=== PATIENT | male | born 1955 | race Caucasian/White ===

== ENCOUNTER → 2020-04-22 11:17 | Outpatient (CLI) | payer OTHER, SELFPAY ==
--- NOTE | ~2020-04-22 | XR_ITS ---
XR chest 2V DATE: 04/22/2020 11:38 INDICATION: Chronic obstructive pulmonary disease TECHNIQUE: PA and lateral views COMPARISON: 08/09/2019 PA and lateral views FINDINGS: Normal heart size. No hilar or mediastinal enlargement. Bilateral hyperinflation. No pul monary infiltrate or consolidation, pulmonary vascular congestion or pleural effusion or pneumothorax . IMPRESSION: No active cardiopulmonary disease There is mild scoliosis and degenerative spurring Reviewed, dictated and finalized at location B.
== END ==
PROVIDERS: PCP Family Medicine; Visit Provider Family Medicine
DX: J44.9 Chronic obstructive pulmonary disease, unspecified (principal); M41.80 Other forms of scoliosis, site unspecified
CPT/HCPCS: 71046

== ENCOUNTER 2021-05-07 09:49 | Outpatient (CLI) | payer OTHER, SELFPAY ==
[2021-05-07 18:48] LABS: Basophils Absolute Auto 0.1 K/mm3 (0.0-0.1); Basophils Percent Auto 0.9 % (0.2-1.2); Eosinophils Absolute Auto 0.4 K/mm3 (0-0.3); Eosinophils Percent Auto 5.2 % (0-4.4); Hematocrit 46.1 % (42.0-52.0); Hemoglobin 14.9 g/dL (14.0-18.0); Immature Granulocyte Absolute 0.01 K/mm3 (0.00-0.031); Immature Granulocyte Percent A 0.1 % (0-0.5); Lymphocytes Absolute Auto 1.99 K/mm3 (0.9-3.2); Lymphocytes Percent Auto 28.9 % (18.3-44.2); Mean Corpuscular HGB Conc 32.3 g/dl (32-36); Mean Corpuscular Hemoglobin 29.7 pg (26-34); Mean Platelet Volume 8.5 fl (7.4-10.4); Monocytes Absolute Auto 0.7 K/mm3 (0.1-0.6); Monocytes Percent Auto 10.3 % (2.6-8.5); Neutrophils Absolute Auto 3.8 K/mm3 (1.3-6.7); Neutrophils Percent Auto 54.6 % (45.5-73.1); Platelet Count Result 303 k/mm3 (150-375); Red Blood Count 5.01 M/mm3 (4.6-6.20); Red Cell Distribution Width 13.8 % (11.5-14.5); White Blood Count 6.9 K/mm3 (4.5-10.0)
[2021-05-07 19:14] LABS: Vitamin D 25 Hydroxy 44.2 ng/mL
[2021-05-07 20:07] LABS: Alanine Aminotransferase 28 U/L (4-50); Albumin Level 4.2 g/dL (3.5-5.1); Alkaline Phosphatase 85 U/L (38-126); Anion Gap 7 mmol/L (8-16); Aspartate Amino Transferase 29 U/L (17-59); Bilirubin,Total 0.7 mg/dL (0.2-1.3); Blood Urea Nitrogen 15 mg/dL (9-20); Calcium 9.2 mg/dL (8.4-10.2); Carbon Dioxide 24 mmol/L (22-30); Chloride 99 mmol/L (98-107); Cholesterol 186 mg/dL (0-200); Estimated Glomerular Filt Rate > 60; Glucose 104 mg/dL (65-110); HDL Direct 44 mg/dL; Potassium 4.6 mmol/L (3.4-5.0); Sodium 130 mmol/L (137-145); Triglycerides 111 mg/dL (<150)
[2021-05-07 20:12] LABS: Hemoglobin A1C 5.2 % (<5.7)
[2021-05-07 20:18] LABS: LDL Cholesterol Direct 103 mg/dL
== END 2021-05-07 09:50 | disposition home or self-care (01) ==
PROVIDERS: PCP Family Medicine; Visit Provider Family Medicine
DX: E11.9 Type 2 diabetes mellitus without complications (principal); E78.5 Hyperlipidemia, unspecified; I10 Essential (primary) hypertension; Z91.89 Other specified personal risk factors, not elsewhere classified; R73.9 Hyperglycemia, unspecified; R79.89 Other specified abnormal findings of blood chemistry; Z12.5 Encounter for screening for malignant neoplasm of prostate; E55.9 Vitamin D deficiency, unspecified
CPT/HCPCS: 36415; 80053; 80061; 82306; 83036; 85025

== ENCOUNTER 2021-06-09 07:36 | Outpatient (CLI) | payer OTHER, SELFPAY ==
--- NOTE | ~2021-06-09 | US_ITS ---
EXAMINATION: US aorta [facility] scrn DATE: 06/09/2021 09:20 CDT INDICATION: Nicotine dependence. High cholesterol. Smoking history. Hypertension. TECHNIQUE: Grayscale, color Doppler, and pulsed Doppler images of the aorta and common iliac arteries were obtained. COMPARISON: None. FINDINGS: There is mild atherosclerosis. The proximal aorta measures 2.1 cm greatest sagittal dimension. The mi d aorta measures 1.5 cm greatest sagittal dimension. The distal aorta measures 1.3 cm greatest sagitt al dimension. The right common internal iliac artery measures 1.1 cm. The left common iliac artery me asures 1 cm. IMPRESSION: 1. Mild atherosclerosis without evidence for aneurysm. Reviewed, dictated and finalized at location A.
== END 2021-06-09 07:37 | disposition home or self-care (01) ==
LOC: ANHIMG 07:41
PROVIDERS: PCP Family Medicine; Visit Provider Family Medicine
DX: Z13.6 Encounter for screening for cardiovascular disorders (principal); Z87.891 Personal history of nicotine dependence; I70.0 Atherosclerosis of aorta
CPT/HCPCS: 76706

== ENCOUNTER 2021-06-22 11:36 | Outpatient (CLI) | payer OTHER, SELFPAY ==
[2021-06-22 20:27] LABS: Anion Gap 6 mmol/L (8-16); Blood Urea Nitrogen 12 mg/dL (9-20); Calcium 9.4 mg/dL (8.4-10.2); Carbon Dioxide 28 mmol/L (22-30); Chloride 101 mmol/L (98-107); Estimated Glomerular Filt Rate > 60; Glucose 104 mg/dL (65-110); Potassium 4.4 mmol/L (3.4-5.0); Sodium 135 mmol/L (137-145)
== END 2021-06-22 11:37 | disposition home or self-care (01) ==
PROVIDERS: PCP Family Medicine; Visit Provider Family Medicine
DX: E87.1 Hypo-osmolality and hyponatremia (principal)
CPT/HCPCS: 36415; 80048

== ENCOUNTER 2021-10-13 10:36 | Outpatient (CLI) | payer OTHER, SELFPAY ==
[2021-10-13 20:29] LABS: Anion Gap 11 mmol/L (8-16); Blood Urea Nitrogen 19 mg/dL (9-20); Calcium 8.9 mg/dL (8.4-10.2); Carbon Dioxide 24 mmol/L (22-30); Chloride 98 mmol/L (98-107); Estimated Glomerular Filt Rate > 60; Glucose 113 mg/dL (65-110); Potassium 4.5 mmol/L (3.4-5.0); Sodium 133 mmol/L (137-145)
== END 2021-10-13 10:37 | disposition home or self-care (01) ==
PROVIDERS: PCP Family Medicine; Visit Provider Family Medicine
DX: E87.1 Hypo-osmolality and hyponatremia (principal)
CPT/HCPCS: 36415; 80048

== ENCOUNTER 2022-04-13 09:55 | Outpatient (CLI) | payer OTHER, SELFPAY ==
[2022-04-13 18:35] LABS: Hematocrit 43.2 % (42.0-52.0); Mean Corpuscular HGB Conc 32.4 g/dl (32-36); Mean Corpuscular Hemoglobin 28.1 pg (26-34); Mean Corpuscular Volume 86.6 fl (80-100); Mean Platelet Volume 8.6 fl (7.4-10.4); Platelet Count Result 310 k/mm3 (150-375); Red Blood Count 4.99 M/mm3 (4.6-6.20); Red Cell Distribution Width 14.8 % (11.5-14.5); White Blood Count 8.1 K/mm3 (4.5-10.0)
[2022-04-13 19:36] LABS: Vitamin D 25 Hydroxy 49.9 ng/mL
[2022-04-13 20:07] LABS: Anion Gap 11 mmol/L (8-16); Blood Urea Nitrogen 17 mg/dL (9-20); Calcium 9.1 mg/dL (8.4-10.2); Carbon Dioxide 25 mmol/L (22-30); Chloride 98 mmol/L (98-107); Cholesterol 182 mg/dL (0-200); Estimated Glomerular Filt Rate > 60; Glucose 108 mg/dL (65-110); HDL Direct 39 mg/dL; Potassium 4.3 mmol/L (3.4-5.0); Sodium 134 mmol/L (137-145); Triglycerides 93 mg/dL (<150)
[2022-04-13 20:18] LABS: LDL Cholesterol Direct 98 mg/dL
[2022-04-13 20:27] LABS: Hemoglobin A1C 5.1 % (<5.7)
[2022-04-13 20:50] LABS: Prostate Specific Antigen 1.1 ng/mL (< OR = 4.0)
== END 2022-04-13 09:56 | disposition home or self-care (01) ==
PROVIDERS: PCP Family Medicine; Visit Provider Family Medicine
DX: Z12.5 Encounter for screening for malignant neoplasm of prostate (principal); E55.9 Vitamin D deficiency, unspecified; R73.9 Hyperglycemia, unspecified; E87.1 Hypo-osmolality and hyponatremia; R79.89 Other specified abnormal findings of blood chemistry; E66.9 Obesity, unspecified; E16.1 Other hypoglycemia; E78.5 Hyperlipidemia, unspecified
CPT/HCPCS: 36415; 80048; 80061; 82306; 83036; 84153; 85027; G0103

== ENCOUNTER 2022-10-25 09:22 | Outpatient (CLI) | payer OTHER, SELFPAY ==
[2022-10-25 20:17] LABS: Alanine Aminotransferase 25 U/L (6-50); Alkaline Phosphatase 68 U/L (38-126); Anion Gap 5 mmol/L (8-16); Aspartate Amino Transferase 39 U/L (17-59); Bilirubin,Total 0.5 mg/dL (0.2-1.3); Blood Urea Nitrogen 12 mg/dL (9-20); Calcium 8.7 mg/dL (8.4-10.2); Carbon Dioxide 28 mmol/L (22-30); Chloride 100 mmol/L (98-107); Estimated Glomerular Filt Rate > 60; Glucose 101 mg/dL (65-110); Sodium 133 mmol/L (137-145)
[2022-10-25 21:21] LABS: Hematocrit 42.5 % (42.0-52.0); Hemoglobin 13.5 g/dL (14.0-18.0); Mean Corpuscular HGB Conc 31.8 g/dl (32-36); Mean Corpuscular Volume 88.2 fl (80-100); Mean Platelet Volume 8.7 fl (7.4-10.4); Platelet Count Result 312 k/mm3 (150-375); Red Blood Count 4.82 M/mm3 (4.6-6.20); Red Cell Distribution Width 15.7 % (11.5-14.5)
== END 2022-10-25 09:23 | disposition home or self-care (01) ==
PROVIDERS: PCP Family Medicine; Visit Provider Family Medicine
DX: E87.1 Hypo-osmolality and hyponatremia (principal); E73.9 Lactose intolerance, unspecified
CPT/HCPCS: 36415; 80053; 85027

== ENCOUNTER 2023-10-13 11:22 | Outpatient (CLI) | payer OTHER, SELFPAY ==
--- NOTE | ~2023-10-13 | XR_ITS ---
Clinical Indication: Chest congestion PA and lateral views of the chest: Comparison: 04/22/2020 Findings: There is minimal haziness left lung base, likely minimal atelectatic change. Right lung louise ar. Cardiomediastinal silhouette is within normal limits. Bones and soft tissues are unremarkable. Impression: Minimal haziness left lung base, likely mild atelectatic change. Reviewed, dictated and finalized at location . 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
== END 2023-10-13 11:23 | disposition home or self-care (01) ==
LOC: ANHBWCIMG 11:23
PROVIDERS: PCP Nurse Practitioner Adult Health; Visit Provider Nurse Practitioner Adult Health
DX: J06.9 Acute upper respiratory infection, unspecified (principal); R91.8 Other nonspecific abnormal finding of lung field
CPT/HCPCS: 71046

== ENCOUNTER 2023-10-31 09:59 | Outpatient (CLI) | payer OTHER, SELFPAY ==
[2023-10-31 19:02] LABS: Basophils Absolute Auto 0.1 K/mm3 (0.0-0.1); Basophils Percent Auto 0.8 % (0.2-1.2); Eosinophils Absolute Auto 0.2 K/mm3 (0-0.3); Eosinophils Percent Auto 3.7 % (0-4.4); Hematocrit 42.6 % (42.0-52.0); Hemoglobin 12.4 g/dL (14.0-18.0); Immature Granulocyte Absolute 0.01 K/mm3 (0.00-0.031); Immature Granulocyte Percent A 0.2 % (0-0.5); Lymphocytes Percent Auto 20.1 % (18.3-44.2); Mean Corpuscular HGB Conc 29.1 g/dl (32-36); Mean Corpuscular Hemoglobin 25.8 pg (26-34); Mean Corpuscular Volume 88.6 fl (80-100); Mean Platelet Volume 8.8 fl (7.4-10.4); Monocytes Absolute Auto 0.5 K/mm3 (0.1-0.6); Monocytes Percent Auto 7.3 % (2.6-8.5); Neutrophils Absolute Auto 4.4 K/mm3 (1.3-6.7); Neutrophils Percent Auto 67.9 % (45.5-73.1); Platelet Count Result 285 k/mm3 (150-375); Red Blood Count 4.81 M/mm3 (4.6-6.20); Red Cell Distribution Width 16.6 % (11.5-14.5); White Blood Count 6.5 K/mm3 (4.5-10.0)
[2023-10-31 19:38] LABS: Hypochromasia 1+ (NORMAL); Platelet Estimate Adequate (Adequate); Schistocytes None Seen (NORMAL)
[2023-10-31 19:39] LABS: Anisocytosis 2+ (NORMAL)
[2023-10-31 19:41] LABS: Vitamin D 25 Hydroxy 59.4 ng/mL
[2023-10-31 21:04] LABS: Alanine Aminotransferase 24 U/L (6-50); Albumin Level 3.9 g/dL (3.5-5.1); Alkaline Phosphatase 76 U/L (38-126); Anion Gap 5 mmol/L (8-16); Aspartate Amino Transferase 31 U/L (17-59); Bilirubin,Total 0.6 mg/dL (0.2-1.3); Blood Urea Nitrogen 13 mg/dL (9-20); Calcium 9.3 mg/dL (8.4-10.2); Carbon Dioxide 29 mmol/L (22-30); Chloride 101 mmol/L (98-107); Cholesterol 176 mg/dL (0-200); Estimated Glomerular Filt Rate > 60; Glucose 139 mg/dL (65-110); HDL Direct 33 mg/dL; Potassium 4.1 mmol/L (3.4-5.0); Sodium 135 mmol/L (137-145); Triglycerides 126 mg/dL (<150)
[2023-10-31 21:14] LABS: LDL Cholesterol Direct 107 mg/dL
[2023-10-31 22:05] LABS: Hemoglobin A1C 5.6 % (<5.7)
== END 2023-10-31 10:00 | disposition home or self-care (01) ==
PROVIDERS: PCP Nurse Practitioner Adult Health; Visit Provider Nurse Practitioner Adult Health
DX: R79.89 Other specified abnormal findings of blood chemistry (principal); I10 Essential (primary) hypertension; Z79.899 Other long term (current) drug therapy
CPT/HCPCS: 36415; 80053; 80061; 82306; 83036; 85025

== ENCOUNTER → 2023-10-31 11:34 | Outpatient (REF) | payer OTHER, SELFPAY | LOC: ANHLAB 11:34 | PROVIDERS: PCP Nurse Practitioner Adult Health; Visit Provider Plastic Surgery | DX: C44.629 Squamous cell carcinoma of skin of left upper limb, including shoulder (principal) | CPT/HCPCS: 36415; 80053; 80061; 82306; 83036; 85025; 88305 ==

== ENCOUNTER 2024-02-15 11:19 | Outpatient (CLI) | payer OTHER, SELFPAY ==
--- NOTE | ~2024-02-15 | XR_ITS ---
Left Knee Technique: AP, lateral, and sunrise views were obtained. Clinical History: Pain Findings: No fracture or dislocation is seen. There is mild medial compartment narrowing. Minimal deg enerative spurring noted.. Soft tissues are unremarkable. No joint effusion is seen. Impression: Mild degenerative change overall, as detailed above. Reviewed, dictated and finalized at location M. Impression: Mild degenerative change overall, as detailed above.
[2024-02-15 19:24] LABS: Basophils Absolute Auto 0.1 K/mm3 (0.0-0.1); Basophils Percent Auto 0.8 % (0.2-1.2); Eosinophils Absolute Auto 0.3 K/mm3 (0-0.3); Eosinophils Percent Auto 3.7 % (0-4.4); Hematocrit 43.9 % (42.0-52.0); Hemoglobin 13.4 g/dL (14.0-18.0); Immature Granulocyte Absolute 0.02 K/mm3 (0.00-0.031); Immature Granulocyte Percent A 0.3 % (0-0.5); Lymphocytes Absolute Auto 1.37 K/mm3 (0.9-3.2); Lymphocytes Percent Auto 18.9 % (18.3-44.2); Mean Corpuscular HGB Conc 30.5 g/dl (32-36); Mean Corpuscular Volume 85.1 fl (80-100); Mean Platelet Volume 8.5 fl (7.4-10.4); Monocytes Absolute Auto 0.8 K/mm3 (0.1-0.6); Monocytes Percent Auto 10.9 % (2.6-8.5); Neutrophils Absolute Auto 4.7 K/mm3 (1.3-6.7); Neutrophils Percent Auto 65.4 % (45.5-73.1); Platelet Count Result 416 k/mm3 (150-375); Red Blood Count 5.16 M/mm3 (4.6-6.20); Red Cell Distribution Width 15.7 % (11.5-14.5); White Blood Count 7.2 K/mm3 (4.5-10.0)
[2024-02-15 20:12] LABS: Vitamin D 25 Hydroxy 51.2 ng/mL
[2024-02-15 20:49] LABS: Alanine Aminotransferase 25 U/L (6-50); Albumin Level 4.3 g/dL (3.5-5.1); Alkaline Phosphatase 88 U/L (38-126); Anion Gap 8 mmol/L (4-12); Aspartate Amino Transferase 40 U/L (17-59); Bilirubin,Total 0.4 mg/dL (0.2-1.3); Blood Urea Nitrogen 15 mg/dL (9-20); Calcium 9.4 mg/dL (8.4-10.2); Carbon Dioxide 25 mmol/L (22-30); Chloride 102 mmol/L (98-107); Cholesterol 169 mg/dL (0-200); Estimated Glomerular Filt Rate > 60; Glucose 99 mg/dL (65-110); HDL Direct 36 mg/dL; Potassium 4.3 mmol/L (3.4-5.0); Sodium 135 mmol/L (137-145); Triglycerides 144 mg/dL (<150)
[2024-02-15 21:04] LABS: LDL Cholesterol Direct 103 mg/dL
[2024-02-15 21:32] LABS: Hemoglobin A1C 5.4 % (<5.7)
== END 2024-02-15 11:20 | disposition home or self-care (01) ==
PROVIDERS: PCP Nurse Practitioner Adult Health; Visit Provider Nurse Practitioner Adult Health
DX: M17.12 Unilateral primary osteoarthritis, left knee (principal); E78.5 Hyperlipidemia, unspecified; R79.89 Other specified abnormal findings of blood chemistry; Z79.899 Other long term (current) drug therapy
CPT/HCPCS: 36415; 73562; 80053; 80061; 82306; 83036; 85025

== ENCOUNTER 2024-04-11 13:40 | Outpatient (CLI) | payer OTHER, SELFPAY ==
--- NOTE | ~2024-04-11 | XR_ITS ---
XR chest 2V 04/11/2024 13:47 Indication: For 2 weeks. COPD. Procedure: 2 view chest Comparison: Comparison to multiple prior studies sequentially, with oldest reviewed study dated 06/19. Findings: There is left basilar atelectasis/scarring. Heart size normal. No pleural effusion, edema o r pneumothorax. Impression: 1: Left basilar atelectasis/scarring. Reviewed, dictated and finalized at location B. Impression: 1: Left basilar atelectasis/scarring.
== END 2024-04-11 13:41 | disposition home or self-care (01) ==
LOC: ANHBWCIMG 13:41
PROVIDERS: PCP Nurse Practitioner Adult Health; Visit Provider Nurse Practitioner Adult Health
DX: J44.9 Chronic obstructive pulmonary disease, unspecified (principal); R91.8 Other nonspecific abnormal finding of lung field
CPT/HCPCS: 71046

== ENCOUNTER 2024-04-25 10:21 | Outpatient (CLI) | payer OTHER, SELFPAY ==
--- NOTE | ~2024-04-25 | CT_ITS ---
CT Scan of the Chest without Contrast: Clinical Indication: COPD Technique: Contiguous sections were acquired throughout the chest without intravenous contrast. Dose reduction technique was used on this scan by utilizing automated exposure control and iterative recon struction technique. The dose-length product (DLP) was 400.65 mGy-cm. Findings: There is no evidence of any significant mediastinal, hilar or axillary lymphadenopathy. Calcified med iastinal nodes are present. There is no evidence of pleural or pericardial effusion. There are tree-in-bud opacities worst in the left lower lobe, but also in the left upper lobe/lingula and right lower lobe. Calcified right upper lobe granuloma noted. Images through the upper abdomen reveal no abnormalities. There is degenerative spondylosis of the th oracic spine. Impression: Tree-in-bud opacities, as above, worst in the left lower lobe, consistent with small airways infectio us process. Reviewed, dictated and finalized at [facility]. Impression: Tree-in-bud opacities, as above, worst in the left lower lobe, consistent with small airways infectious process.
== END 2024-04-25 10:22 ==
PROVIDERS: Visit Provider Nurse Practitioner Adult Health
DX: J98.11 Atelectasis (principal); J44.9 Chronic obstructive pulmonary disease, unspecified; R91.8 Other nonspecific abnormal finding of lung field
CPT/HCPCS: 71250

== ENCOUNTER 2024-05-02 00:37 | Day surgery (SDC) | payer OTHER, SELFPAY ==
[2024-04-27 13:33] VITALS: BMI 37.8
--- NOTE | 2024-04-27 13:48 | PC.NURSE ---
Addendum entered by Dash Carrera RN 04/30/24 12:44: Spoke with Jennifer and said no food midnight but clear liquids till only 4am. Nothing to drink after 4am. Original Note: Report to the Outpatient Waiting Room, entrance under the green pavilion located off [facility], at time __10:00AM on date __05/02/24 . Planned Procedure Time: __12:00PM . Time changes happen often and if your time is changed the preop area will call you the afternoon before. - You and your visitor will be asked to self-screen and do not enter if you have any COVID symptoms. - A mask is optional within the hospital at this time. Patients may have clear liquids (water, carbonated beverages, clear teas, apple juice) until 3 hours prior to surgery with a maximum of 20 ounces. - No food from midnight until time of surgery. Take the following medications with a SIP of water the morning of surgery: ____WIXELA INHALER, SPIRIVA INHALER, DOXYCYCLINE & PAROXETINE. MAY USE ALBUTEROL INHALER NEEDED. DO NOT STOP ANY OF YOUR OTHER PRESCRIPTION MEDICATIONS PRIOR TO SURGERY ?EXCEPT THE FOLLOWING Medications to discontinue per physician HOLD ALL VITAMINS/SUPPLEMENTS 3 DAYS PRE-OP PER ANESTHESIA Date to take last dose 04/28/24 Please no make-up, nail maldivian, hairspray, perfume, deodorant, or body powder the day of surgery. No jewelry (including any body piercings) or valuables the day of surgery, leave them at home. Please take a shower or bath the night before, or the morning of, surgery with an antibacterial soap. Wear comfortable, loose fitting clothing. - Jewelry must be removed prior to entering the operating room. Rings and piercings that are not removed may be cut off. - The hospital will not accept responsibility for valuables. - Please leave all valuables, including medications, at home the day of surgery. If you are going home after surgery, a licensed driver's license examiner must drive you home. - NO public transportation without another adult if you receive anesthesia. - We recommend that an adult stay with you for 24 hours following discharge. - We also recommend that you do not drive, make important decision, drink alcoholic beverages, or take any drugs that were not prescribed by your health care provider for at least 24 hours after your discharge time. Follow any additional instructions given to you from your surgeon. If you or anyone in your household have experienced Covid symptoms in the past week, please notify your surgeon or the nurse liaison at the phone number below for possible testing. Telephone instructions given to ___PATIENT'S - JENNIFER and asked if any additional questions and then verbalized understanding. Patient advised to call surgeon office or pre surgery nurse liaison [phone] if any additional questions.
--- NOTE | 2024-05-02 06:54 | PM.HPGS ---
History of Present Illness History of Present Illness Chief complaint: Dupuytren's right ring finger Narrative: Patient seen and examined in pre-operative holding area. No interval change in medical history or symptoms. Patient recalls previous discussion of benefits and alternatives to procedure. Continues to desire to proceed with right ring finger fasciectomy. Reviewed procedure, post-op expectations and risks including but not limited to bleeding, infection, injury to tendon/nerve/vessel, incomplete release, recurrence, decreased hand function, stiffness, RSD, no change or worsening of symptoms. I discussed the possible use of assistants and their participation in the case. Patient stated understanding and signed the consent form wishing to proceed. Review of Systems Review of Systems: All systems reviewed & are unremarkable except as noted in HPI and below PMFSH Past Medical History Medical History Anxiety COPD (chronic obstructive pulmonary disease) Depression Hypercholesteremia Hypertension Postherpetic neuralgia (~07/2019) Tachycardia, paroxysmal (~07/2019) Family History Family History Father Acute myocardial infarction Mother Family history of malignant melanoma Social History Social History Smoking packs per day: 1 Smoking cigarettes per day: 20.0 Years smoked: 25 Smoking pack-years: 25.00 Smoking status: Former smoker Tobacco type: cigarettes Smoking end date: 03/19/95 Alcohol intake: current Lack of Transportation: No Lack of Food: Never True Current Housing: I Do Not Have Housing Concerned About Future Housing: No Difficulty Paying Gas/Electric Bills: No Difficulty Paying for Meds: No Currently Unemployed: No Education: High School Diploma/GED Difficulty w/ Childcare or Family Care: No Living arrangements: with family Additional living arrangements comments: Gender identity (if verbalized by the patient): Male Spiritual care concerns: No Meds Home Medications and Allergies Home Medications Medication Instructions Recorded Confirmed Type albuterol sulfate 90 mcg/actuation 1 inh inhalation Q4H PRN Shortness 04/10/21 04/27/24 History aerosol inhaler (ProAir HFA) Of Breath Or Wheezing tiotropium bromide 1.25 2 puff inhalation DAILY #4 grams 04/10/21 05/02/24 Rx mcg/actuation mist for inhalation (Spiriva Respimat) montelukast 10 mg tablet See Rx Instructions .Route 09/20/23 05/02/24 Rx .COMPLEX #90 tabs losartan 50 mg tablet See Rx Instructions .Route 01/12/24 05/02/24 Rx .COMPLEX #90 tabs paroxetine HCl 40 mg tablet See Rx Instructions .Route 04/18/24 05/02/24 Rx .COMPLEX #90 tabs loratadine 10 mg tablet See Rx Instructions .Route 04/19/24 05/02/24 Rx .COMPLEX #90 tabs atorvastatin 10 mg tablet See Rx Instructions .Route 04/23/24 05/02/24 Rx .COMPLEX #90 tabs doxycycline hyclate 100 mg tablet 100 mg PO BID 10 days #20 tabs 04/25/24 05/02/24 Rx cholecalciferol (vitamin D3) 50 50 mcg PO DAILY 04/27/24 05/02/24 History mcg (2,000 unit) tablet fluticasone 500 mcg-salmeterol 50 2 inh inhalation BID 04/27/24 05/02/24 History mcg/dose blistr powdr for inhalation (Wixela Inhub) fluticasone propionate 50 1 spray intranasal Q12H PRN Nasal 04/27/24 05/02/24 History mcg/actuation nasal Congestion spray,suspension (Flonase Allergy Relief) tramadol 50 mg tablet 50 mg PO Q6H PRN pain #12 tabs 05/02/24 Rx Allergies Allergy/AdvReac Type Severity Reaction Status Date / Time No Known Allergies Allergy Verified 05/02/24 10:07 Exam Narrative: unchanged Assessment and Plan Assessment and plan (1) Dupuytren contracture: Code(s): 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
--- NOTE | 2024-05-02 06:55 | W.PM.PROC2 ---
Procedure Note - Detailed Date of Procedure 05/02/24 Pre-op Diagnosis Dupuytren's right ring finger Post-op Diagnosis Same Procedure Performed right ring finger fasciectomy Surgeon Megan Stauffer MD Gang Supervisor [employer] susan ariza pa-c Anesthesia MAC Description of Procedure INFORMED CONSENT: The patient was seen and examined and marked in the pre-op area.? The patient signed the consent form. PROCEDURE IN DETAIL:The patient taken back to OR on the stretcher in supine position. Time out performed with anesthesia, surgeon and staff agreeing on patient's name site and surgery to be performed SCDs were placed on the lower extremities and inflated. A tourniquet was placed on {right} upper extremity and antibiotics given IV After anesthesia administered sedation I injected {6}cc 1%lido and 0.5% marcaine plain for digital block in the palm The?{right upper extremity}?was prepped and draped in sterile fashion the??{right upper extremity} was? exsanguinated with Esmarch bandage and tourniquet inflated to 250mmHg I proceeded with making a longitudinal incision over the large central cord of the right ring finger in the palm going distally to the proximal interphalangeal joint. I made my incision obliquely across flexion creases. This was done through skin and dermis. Scalpel and Littler scissors were used to elevate skin flaps above the cord proximally. I proceeded with circumferential dissection around the origin of the cord proximally. I proceeded with transection of the cord with the 15 blade scalpel. I then proceeded with anterograde dissection of the cord to the PIP joint until I was able to achieve full extension of the MP joint and PIP joint. The neurovascular bundles were protected throughout the procedure. I irrigated with normal saline. I closed skin with 4-0 chromic. A dressing of xeroform, 4x4, roderick, and an ulnar gutter splint was applied for patient safety, security, and comfort and secured with an ananya bandage after the tourniquet was let down noting the hand was warm and well perfused. The patient was then awaken from anesthesia and transferred to the recovery room in stable condition.? Complications - none EBL- 0cc Disposition - home in stable conditions susan ariza pa-c was essential for positioning, retraction, closure and dressing placement [facility] Billing Surgery - Charge Forward: Surgery Billing ([id number] for susan)
[2024-05-02 10:08] VITALS: BP 146/73; PULSE 100; RESP 20; TEMP 36.1; O2SAT 99
[2024-05-02] MEDS: LACTATED RINGERS 1,000 ML 30 ML IV CONT (10:25)
--- NOTE | 2024-05-02 10:32 | WPDANESEPPF ---
Anes - Initial Pre Proc Eval Procedure: Operation Date: 05/02/24 12:00 Proposed Procedures p Right Ring Finger Fasciectomy - Megan Stauffer MD Date/Time: 05/02/24 10:32 Surgeon: Megan Stauffer MD Pre Op Diagnosis: Dupuytren's right ring finger Patient Data Age: 69 Gender: M Height: 1.85 m Weight: 130 kg Allergies Allergy/AdvReac Type Severity Reaction Status Date / Time No Known Allergies Allergy Verified 05/02/24 10:07 Home Medications Medication Instructions Recorded Confirmed Type albuterol sulfate 90 mcg/actuation 1 inh inhalation Q4H PRN Shortness 04/10/21 04/27/24 History aerosol inhaler (ProAir HFA) Of Breath Or Wheezing tiotropium bromide 1.25 2 puff inhalation DAILY #4 grams 04/10/21 05/02/24 Rx mcg/actuation mist for inhalation (Spiriva Respimat) montelukast 10 mg tablet See Rx Instructions .Route 09/20/23 05/02/24 Rx .COMPLEX #90 tabs losartan 50 mg tablet See Rx Instructions .Route 01/12/24 05/02/24 Rx .COMPLEX #90 tabs paroxetine HCl 40 mg tablet See Rx Instructions .Route 04/18/24 05/02/24 Rx .COMPLEX #90 tabs loratadine 10 mg tablet See Rx Instructions .Route 04/19/24 05/02/24 Rx .COMPLEX #90 tabs atorvastatin 10 mg tablet See Rx Instructions .Route 04/23/24 05/02/24 Rx .COMPLEX #90 tabs doxycycline hyclate 100 mg tablet 100 mg PO BID 10 days #20 tabs 04/25/24 05/02/24 Rx cholecalciferol (vitamin D3) 50 50 mcg PO DAILY 04/27/24 05/02/24 History mcg (2,000 unit) tablet fluticasone 500 mcg-salmeterol 50 2 inh inhalation BID 04/27/24 05/02/24 History mcg/dose blistr powdr for inhalation (Wixela Inhub) fluticasone propionate 50 1 spray intranasal Q12H PRN Nasal 04/27/24 05/02/24 History mcg/actuation nasal Congestion spray,suspension (Flonase Allergy Relief) tramadol 50 mg tablet 50 mg PO Q6H PRN pain #12 tabs 05/02/24 Rx Patient hx anesthesia problems: none Family hx anesthesia problems: none Results Review: All pre-operative results and documents have been reviewed as part of the pre-operative evaluation. [facility] Past Medical History Medical History Anxiety COPD (chronic obstructive pulmonary disease) Depression Hypercholesteremia Hypertension Postherpetic neuralgia (~07/2019) Tachycardia, paroxysmal (~07/2019) Family History Family History Father Acute myocardial infarction Mother Family history of malignant melanoma Social History Social History Smoking packs per day: 1 Smoking cigarettes per day: 20.0 Years smoked: 25 Smoking pack-years: 25.00 Smoking status: Former smoker Tobacco type: cigarettes Smoking end date: 03/19/95 Alcohol intake: current Lack of Transportation: No Lack of Food: Never True Current Housing: I Do Not Have Housing Concerned About Future Housing: No Difficulty Paying Gas/Electric Bills: No Difficulty Paying for Meds: No Currently Unemployed: No Education: High School Diploma/GED Difficulty w/ Childcare or Family Care: No Living arrangements: with family Additional living arrangements comments: Gender identity (if verbalized by the patient): Male Spiritual care concerns: No Anes - Eval Final PreProcedure Day of Procedure 05/02/24 10:32 Patient weight: morbidly obese Heart: regular rate and rhythm Lungs: clear to auscultation and normal air movement Airway: Mallampati scale class II Neurological: alert and oriented Last oral intake: >/= 8 hours ASA classification: III Emergent: no Anesthetic plan: proceed Anesthesia type and monitoring: general GIVS (LMA if needed) and standard monitoring Results Review: All pre-operative results and documents have been reviewed as part of the pre-operative evaluation. Informed Consent: The patient's anesthetic
--- NOTE | 2024-05-02 10:58 | P.PNAN_ITS ---
Anes - Eval Final PreProcedure Day of Procedure 05/02/24 10:58 Patient weight: obese Heart: regular rate and rhythm Lungs: clear to auscultation Airway: Mallampati scale class II Neurological: alert and oriented Last oral intake: >/= 8 hours ASA classification: III Emergent: no Anesthetic plan: proceed Anesthesia type and monitoring: general GIVS and standard monitoring Results Review: All pre-operative results and documents have been reviewed as part of the pre- operative evaluation. Informed Consent: The patient's anesthetic plan and its attendant risks and benefits were discussed with the patient/family/POA. Questions were solicited and answers provided to the satisfaction of the patient/family/POA.
[2024-05-02] MEDS: ceFAZolin 3 GM/D5W 100 ML 100 ML IVPB (11:21)
[2024-05-02] MEDS: BUPivacaine HCL 0.5% 10 ML AMP 20 ML INFILTRATE (11:33)
[2024-05-02] MEDS: LIDOCAINE HCL 1% LOCAL INJ 20 ML VIAL 4 ML INFILTRATE (11:34)
[2024-05-02 11:55] VITALS: BP 121/73; PULSE 86; RESP 14; O2SAT 100
[2024-05-02 12:25] VITALS: BP 114/66; PULSE 78; RESP 15
[2024-05-02 13:00] VITALS: BP 112/65; PULSE 78; RESP 16
== END 2024-05-02 13:05 | disposition home or self-care (01) ==
PROVIDERS: Visit Provider Plastic Surgery
PROC: (CPT 26045; principal; 2024-05-02 12:00)
DX: M72.0 Palmar fascial fibromatosis [Dupuytren] (principal); J44.9 Chronic obstructive pulmonary disease, unspecified; I10 Essential (primary) hypertension; E78.00 Pure hypercholesterolemia, unspecified; F41.9 Anxiety disorder, unspecified; F32.A Depression, unspecified; Z87.891 Personal history of nicotine dependence; E66.01 Morbid (severe) obesity due to excess calories; Z68.36 Body mass index [BMI] 36.0-36.9, adult; Z79.51 Long term (current) use of inhaled steroids
CPT/HCPCS: 26123; 88304; A9270; J0690; J1100; J2250; J2371; J2405; J2704; J3010; J7120

== ENCOUNTER 2024-08-22 10:53 | Outpatient (CLI) | payer OTHER, SELFPAY ==
[2024-08-22 18:54] LABS: Basophils Absolute Auto 0.1 K/mm3 (0.0-0.1); Basophils Percent Auto 0.9 % (0.2-1.2); Eosinophils Absolute Auto 0.4 K/mm3 (0-0.3); Eosinophils Percent Auto 5.1 % (0-4.4); Hematocrit 41.9 % (42.0-52.0); Hemoglobin 12.5 g/dL (14.0-18.0); Immature Granulocyte Absolute 0.01 K/mm3 (0.00-0.031); Immature Granulocyte Percent A 0.1 % (0-0.5); Immature Platelet Fraction Pct 2.4 % (0.9-11.2); Lymphocytes Absolute Auto 1.43 K/mm3 (0.9-3.2); Lymphocytes Percent Auto 18.4 % (18.3-44.2); Mean Corpuscular HGB Conc 29.8 g/dl (32-36); Mean Corpuscular Hemoglobin 25.7 pg (26-34); Mean Platelet Volume 9.3 fl (7.4-10.4); Monocytes Absolute Auto 0.7 K/mm3 (0.1-0.6); Monocytes Percent Auto 9.3 % (2.6-8.5); Neutrophils Absolute Auto 5.2 K/mm3 (1.3-6.7); Neutrophils Percent Auto 66.2 % (45.5-73.1); Platelet Count Result 308 k/mm3 (150-375); Red Blood Count 4.87 M/mm3 (4.6-6.20); Red Cell Distribution Width 15.9 % (11.5-14.5); White Blood Count 7.8 K/mm3 (4.5-10.0)
[2024-08-22 21:36] LABS: Alanine Aminotransferase 26 U/L (6-50); Albumin Level 4.1 g/dL (3.5-5.1); Alkaline Phosphatase 87 U/L (38-126); Anion Gap 6 mmol/L (4-12); Aspartate Amino Transferase 39 U/L (17-59); Bilirubin,Total 0.5 mg/dL (0.2-1.3); Blood Urea Nitrogen 15 mg/dL (9-20); Calcium 8.9 mg/dL (8.4-10.2); Carbon Dioxide 27 mmol/L (22-30); Chloride 100 mmol/L (98-107); Cholesterol 172 mg/dL (0-200); Estimated Glomerular Filt Rate > 60; Glucose 128 mg/dL (65-110); HDL Direct 40 mg/dL; Potassium 4.3 mmol/L (3.4-5.0); Sodium 133 mmol/L (137-145); Triglycerides 137 mg/dL (<150)
[2024-08-22 21:47] LABS: LDL Cholesterol Direct 98 mg/dL
[2024-08-22 22:24] LABS: Vitamin D 25 Hydroxy 44.8 ng/mL
[2024-08-23 01:21] LABS: Prostate Specific Antigen 1.5 ng/mL (< OR = 4.0)
== END 2024-08-22 10:54 | disposition home or self-care (01) ==
PROVIDERS: PCP Nurse Practitioner Adult Health; Visit Provider Nurse Practitioner Adult Health
DX: R79.89 Other specified abnormal findings of blood chemistry (principal); I10 Essential (primary) hypertension; Z12.5 Encounter for screening for malignant neoplasm of prostate
CPT/HCPCS: 36415; 80053; 80061; 82306; 84153; 85025; 85055; G0103

== ENCOUNTER 2024-08-27 09:09 | Outpatient (CLI) | payer OTHER, SELFPAY ==
[2024-08-27 20:48] LABS: Hemoglobin A1C 5.7 % (<5.7)
== END 2024-08-27 09:10 | disposition home or self-care (01) ==
PROVIDERS: PCP Nurse Practitioner Adult Health; Visit Provider Nurse Practitioner Adult Health
DX: R73.9 Hyperglycemia, unspecified (principal)
CPT/HCPCS: 36415; 83036

== ENCOUNTER 2025-05-08 08:43 | Outpatient (CLI) | payer OTHER, SELFPAY ==
--- NOTE | ~2025-05-08 | CT_ITS ---
EXAMINATION: CT diagnostic chest wo con DATE: 05/08/2025 09:03 INDICATION: Chronic obstructive pulmonary disease. Cough TECHNIQUE: Computed tomography (CT) of the chest was performed without intravenous contrast. The dose-length product was 560.07 mGy-cm. COMPARISON: 04/25/2024 FINDINGS: No enlarged mediastinal or hilar lymph nodes. There are calcified mediastinal and hilar lymph nodes similar to the prior study. Heart is not enlarged. There are a few coronary artery calcifications. Thoracic aorta is not aneurysmal. Tracheobronchial tree is patent. Mild bronchiectasis throughout. No pn eumothorax. No emphysema. There is a 8 mm pulmonary nodule in the left upper lobe. There are several tree-in-bud opacities scattered throughout both lungs. There are a few groundglass opacities in the upper lobes. 7 mm calcified granuloma in the right upper lobe. There is a 2.7 x 1.5 cm subpleural cons olidation in the right lower lobe. Bones appear splenic. Multilevel degenerative change in the visualized spine similar to the prior study. IMPRESSION: 1. There is a 8 mm pulmonary nodule in the left upper lobe. A PET/CT is recommended. A follow up chest CT in 3 months is recommended. 2.There are several tree-in-bud opacities scattered throughout both lungs. 3.There are a few groundglass opacities in the upper lobes. 4.There is a 2.7 x 1.5 cm subpleural consolidation in the right lower lobe. Differential includes postobstructive atelectasis, pneumonia or mass. A PET/CT is recommended. Follow-up chest CT in 3 months is recommended. 5. Mild bronchiectasis. Reviewed, dictated and finalized at location A. IMPRESSION: 1. There is a 8 mm pulmonary nodule in the left upper lobe. A PET/CT is recomme nded. A follow up chest CT in 3 months is recommended. 2.There are several tree-in-bud opacities scattered throughout both lungs. 3.There are a few groundglass opacities in the upper lobes. 4.There is a 2.7 x 1.5 cm subpleural consolidation in the right lower lobe. Dif ferential includes postobstructive atelectasis, pneumonia or mass. A PET/CT is recommended. Follow-up chest CT in 3 months is recommended. 5. Mild bronchiectasis.
== END 2025-05-08 08:44 | disposition home or self-care (01) ==
LOC: GOSHIMG 08:43
PROVIDERS: PCP Nurse Practitioner Adult Health; Visit Provider Nurse Practitioner Adult Health
DX: R91.8 Other nonspecific abnormal finding of lung field (principal); R91.1 Solitary pulmonary nodule; J47.9 Bronchiectasis, uncomplicated; J94.8 Other specified pleural conditions
CPT/HCPCS: 71250

== ENCOUNTER 2025-05-21 10:48 | Outpatient (CLI) | payer OTHER, SELFPAY ==
--- NOTE | ~2025-05-21 | PE_ITS ---
EXAMINATION: PET skull to mid thigh DATE: 05/21/2025 12:41 INDICATION: Suspicious lung nodule and lung mass TECHNIQUE: Blood glucose level was 111 mg/dL. 9.982 mCi of 18-fluorodeoxyglucose (18-FDG) was administered i.v. Low dose computed tomography (CT) images were acquired from the base of the brain to the proximal thighs for attenuation correction and anatomic localization. Positron emission tomography (PET) images were acquired in the same distribution beginning 52 minutes after injection. Images including fused PET/CT images were reconstructed in axial, coronal, and sagittal planes. Automated exposure control technique was employed. The dose- length product was 1334.17mGy-cm. COMPARISON: None FINDINGS: Head/neck: There is symmetric increased activity in the oral cavity, palatine tonsils, laryngeal muscles and ocular muscles without CT correlate, likely physiologic. Prominent mucosal thickening the nasal sinuses with complete opacification right frontal sinus, many of the bilateral ethmoid air cells and near complete opacification of the right maxillary sinus. No pathologically enlarged cervical lymphadenopathy or suspicious foci of increased FDG uptake in the visualized head or neck. Chest: There are a few small calcified pulmonary nodules in the right upper lobe along with calcified right hilar and mediastinal lymph nodes consistent with old granulomatous disease. There is a new region of consolidation at the lingula concerning for pneumonia. There no significant progression and tree-in-bud opacities in both lungs particularly in the lingula consistent with endobronchial spread of disease and additional bronchiolitis/early pneumonia. There is increased uptake associated with a cluster of new paravertebral nodules in the posterior posterior medial left lower lobe and a new nodule at the site of a prior small cavitary lesion in the superior segment of the right lower lobe. The rapid development again favors an infectious/inflammatory etiology. New complete resolution of a prior small region of consolidation at the basilar right lower lobe. The previously seen 8 mm left upper lobe nodule of concern is a more groundglass appearance without significant FDG activity. Overall constellation of findings is most consistent with an evolving pattern of ongoing multifocal pneumonia. No pleural effusion. Heart size is normal. No pericardial effusion. Thoracic aorta is normal in caliber. No pathologically enlarged or FDG avid thoracic lymphadenopathy. . 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 Physiologic renal accumulation and excretion of FDG activity in the kidneys, bladder and along portions of ureters. Normal degree and heterogenous pattern of increased uptake throughout the liver without radiologic correlate or dominant FDG avid lesion. The gallbladder, pancreas, spleen and bilateral adrenal glands are normal. Mild uptake scattered throughout the bowels without radiologic correlate, also likely physiologic. There is moderate colonic diverticulosis with a sigmoid predominance. There is no adjacent inflammatory change to suggest diver ticulitis. Normal appendix. No other abnormal foci of increased FDG uptake or pathologically enlarged lymphadenopathy in the abdomen, pelvis or proximal thighs. Prostatomegaly measuring 4.6 x 4.6 cm. Musculoskeletal: Severe lower cervical and moderate thoracic and lumbar spondylosis. No suspicious lytic, blastic or abnormally FDG avid bone lesions. IMPRESSION: 1. Evolving pattern of bilateral lung disease with new or progressive regions of tree-in-bud opacity in both lungs in the region of consolidation in the lingula consistent with colitis and pneumonia. The only lesions with significant increased FDG uptake associated with a few nodules in the right lower lobe which have developed in the 2 weeks since the prior study consistent with an infectious/inflammatory etiology. Would recommend follow-up with 3 have 6 month low-dose noncontrast chest CT. 2. No other lesions suspicious for malignancy or metastatic disease in the neck, chest, abdomen or pelvis. 3. Prostatomegaly. Reviewed, dictated and finalized at location A. IMPRESSION: 1. Evolving pattern of bilateral lung disease with new or progressive regions o f tree-in-bud opacity in both lungs in the region of consolidation in the lingu la consistent with colitis and pneumonia. The only lesions with significant inc reased FDG uptake associated with a few nodules in the right lower lobe which h ave developed in the 2 weeks since the prior study consistent with an infectiou s/inflammatory etiology. Would recommend follow-up with 3 have 6 month low-dose noncontrast chest CT. 2. No other lesions suspicious for malignancy or metastatic disease in the neck , chest, abdomen or pelvis. 3. Prostatomegaly.
--- OUTSIDE RECORDS SUMMARY | 2025-05-21 11:24 | XMS_ITS | Clinical Summary ---
Author Organization [facility] Address [address] [address] Phone Care Team Providers Care Basket Machine Operator Name Role Phone Cari Terry LIZET Primary Care Provider [phone] Allergies No known active allergies Medications albuterol (ACCUNEB) 0.63 MG/3ML Nebulizer Soln 0.63 mg by Nebulization route every 4 hours as needed. Active loratadine (Claritin) 10 MG Tablet Take 10 mg by mouth daily. Active Cholecalciferol (VITAMIN D3 PO) Take by mouth daily. With Folic Acid Active atorvastatin (LIPITOR) 10 MG Tablet Take 10 mg by mouth daily. Active PARoxetine (PAXIL) 40 MG Tablet Take 40 mg by mouth daily. Active montelukast (SINGULAIR) 10 MG Tablet Take 10 mg by mouth every evening. Active Fluticasone-Ume clidin-Vilant (Trelegy Ellipta) 200-62.5-25 MCG/ACT AEROSOL POWDER, BREATH ACTIVATED take 1 Puff by inhalation daily. Active albuterol (ProAir HFA) 108 (90 Base) MCG/ACT Aerosol Solution take 2 Puffs by inhalation every 4 hours as needed. Active Encounters Date Type Department Care Team Description 04/15/2025 8:20 AM CDT - 04/15/2025 8:40 AM CDT Surgery [facility] Periop [address] [place] [address] Henny Soto MD PhD CATARACT EXTRACTION WITH INTRAOCULAR LENS PLACEMENT, RIGHT EYE 04/15/2025 8:19 AM CDT Anesthesia Event [facility] Periop [address] [place] [address] Patrick Zhang, DIRECTOR OF GUIDANCE, AUTOMATIC SEAMER 04/15/2025 7:23 AM CDT - 04/15/2025 8:44 AM CDT Hospital Encounter [facility] Preop/Pacu II [address] [place] [address] Henny Soto MD PhD Discharge Disposition: Discharged to home or Selfcare 04/15/2025 Travel 04/09/2025 Travel 03/18/2025 12:03 PM CDT Anesthesia Event [facility] Periop [address] [place] [address] Dayday Bailey, DIRECTOR OF GUIDANCE, AUTOMATIC SEAMER 03/18/2025 11:20 AM CDT - 03/18/2025 11:40 AM CDT Surgery [facility] Periop [address] [place] [address] Henny Soto MD PhD CATARACT EXTRACTION WITH INTRAOCULAR LENS PLACEMENT, LEFT EYE 03/18/2025 9:55 AM CDT - 03/18/2025 12:24 PM CDT Hospital Encounter [facility] Preop/Pacu II [address] [place] [address] Henny Soto MD PhD Discharge Disposition: Discharged to home or Selfcare 03/18/2025 Travel 03/12/2025 Travel from Last 3 Months Family History Medical History Relation Name Comments Heart Disease Father Cancer Mother Melanoma Cancer Sister Relation Name Status Comments Father Mother Sister Social History Tobacco Use Types Packs/Day Years Used Date Smoking Tobacco: Former Cigarettes Q uit: 1994 Smokeless Tobacco: Never Tobacco Cessation:Counseling Given: Not Answered Alcohol Use Standard Drinks/Week Comments Yes 0 (1 standard drink = 0.6 oz pur e alcohol) occassional Sex and Gender Information Value Date Recorded Sex Assigned at Not on file Legal Sex Male 8:45 PM CDT Gender Identity Not on file Sexual Orientation Not on file Last Filed Vital Signs Vital Sign Reading Time Taken Comments Blood Pressure 136/96 04/15/2025 8:40 AM CDT Pulse 99 04/15/2025 8:40 AM CDT Temperature 36.6 C (97.9 F) 04/15/2025 8:40 AM CDT Respiratory Rate 16 04/15/2025 8:40 AM CDT Oxygen Saturation 98% 04/15/2025 8:40 AM CDT Inhaled Oxygen Concentration - - Weight 129.3 kg (285 lb) 04/15/2025 7:44 AM CDT Height 182.9 cm (6') 04/15/2025 7:44 AM CDT Body Mass Index 38.65 04/15/2025 7:44 AM CDT Plan of Treatment Health Maintenance Due Date Last Done Comments Hepatitis C Virus (HCV) Screening 1954 Cologuard 1999 Colonoscopy 1999 Colorectal Cancer Screening 1999 Immunochemical Fecal Occult Blood 1999 AAA Screening Ultrasound 2019 Influenza Immunization (#1) 2025 110 12/2023, 07/21/2023, 07/25/2022, Additional history exists SARS-COV-2 Immunization ( season) 2025 07/21/2021, 12/09/2020, 11/20/2020 DTaP/Tdap/Td Immunization Discontinued 01/17/2014 TdaP Immunization Completed 01/17/2014 Zoster Immunization Completed 01/21/2021, 0 Pneumococcal Immunization (50+ years) Completed 10/25/2022, 05/13/2021, 05/11/2019 Pneumococcal Immunization Combined Discontinued 10/25/2022, 05/13/2021, 05/11/2019 Respiratory Syncytial Virus (RSV) Immunization (Adult) Completed 07/24/2024 Hepatitis B Immunization Aged Out No longer eligible based on patient's age to complete this topic Human Papillomavirus (HPV) Immunization Aged Out No longer eligible based on patient's age to complete this topic Meningococcal Immunization (ACWY) Aged Out No longer eligible based on patient's age to complete this topic Rotavirus Immunization Aged Out No lo nger eligible based on patient's age to complete this topic Medical Devices Implanted Type Area Gem Technician Device Identifier Shelf Expiration Date Model / Serial / Lot Left Lens Implanted:Qty: 1 on 03/18/2025 by Henny Soto MD PhD at [facility] Left: Eye AUGUST & AUGUST 08/21/2027 DCB0 0 / DCB00 / [id number] Right Lens Implanted:Qty: 1 on 04/15/2025 by Henny Soto MD PhD at [facility] Right: Eye AUGUST & AUGUST 12/05/2027 DCB00 / DCB00 / [id number] Procedures Procedure Name Priority Date/Time Associated Diagnosis Comments EXTCAP RMVL INSERT INTRAOC PROSTH W/ECP 04/15/2025 8:10 AM CDT VISUALLY SIGNIFICANT CATARACT, RIGHT EYE Special Needs 6'0 285LBS, COPD WITH RESCUE, CHRISTINA, LEFT EYE DONE ON 03/18/25 EXTCAP INSERT INTROC PROSTH W/ECP 04/15/2025 8:10 AM CDT VISUALLY SIGNIFICANT CATARACT, RIGHT EYE Special Needs 6'0 285LBS, COPD WITH RESCUE, CHRISTINA, LEFT EYE DONE ON 03/18/25 WI XCAPSL CTRC RMVL INSJ IO LENS PROSTH W/O ECP 04/15/2025 8:10 AM CDT VISUALLY SIGNIFICANT CATARACT, RIGHT EYE Special Needs 6'0 285LBS, COPD WITH RESCUE, CHRISTINA, LEFT EYE DONE ON 03/18/25 REMV CATARACT INTRACAP,INSERT LENS 04/15/2025 8:10 AM CDT VISUALLY SIGNIFICANT CATARACT, RIGHT EYE Special Needs 6'0 285LBS, COPD WITH RESCUE, CHRISTINA, LEFT EYE DONE ON 03/18/25 WI XCAPSL CTRC RMVL INSJ IO LENS PROSTH CPLX WO ECP 04/15/2025 8:10 AM CDT VISUALLY SIGNIFICANT CATARACT, RIGHT EYE Special Needs 6'0 285LBS, COPD WITH RESCUE, CHRISTINA, LEFT EYE DONE ON 03/18/25 EXTCAP RMVL INSERT INTRAOC PROSTH W/ECP 03/18/2025 11:56 AM CDT VISUALLY SIGNIFICANT CATARACT, LEFT EYE Special Needs 6'1 285lbs Hx CHRISTINA - no cpap, COPD EXTCAP INSERT INTROC PROSTH W/ECP 03/18/2025 11:56 AM CDT VISUALLY SIGNIFICANT CATARACT, LEFT EYE Special Needs 6'1 285lbs Hx CHRISTINA - no cpap, COPD WI XCAPSL CTRC RMVL INSJ IO LENS PROSTH W/O ECP 03/18/2025 11:56 AM CDT VISUALLY SIGNIFICANT CATARACT, LEFT EYE Special Needs 6'1 285lbs Hx CHRISTINA - no cpap, COPD REMV CATARACT INTRACAP,INSERT LENS 03/18/2025 11:56 AM CDT VISUALLY SIGNIFICANT CATARACT, LEFT EYE Special Needs 6'1 285lbs Hx CHRISTINA - no cpap, COPD WI XCAPSL CTRC RMVL INSJ IO LENS PROSTH CPLX WO ECP 03/18/2025 11:56 AM CDT VISUALLY SIGNIFICANT CATARACT, LEFT EYE Special Needs 6'1 285lbs Hx CHRISTINA - no cpap, COPD from Last 3 Months Insurance MEDICARE C [employer] Care Teams Basket Machine Operator Relationship Specialty Start Date End Date Cari Terry APRN [address] [place] [phone] PCP - General Advanced Practice Nurse 04/15/25
--- OUTSIDE RECORDS SUMMARY | 2025-05-21 11:24 | XMS_ITS | Clinical Summary ---
Author Organization [facility] Address [address] [place] [address] Care Team Providers Care Electronic Equipment Repairer Name Role Phone Jalil Thacker MD Unavailable Brian Izquierdo MD Primary Care Provider [phone] Source Comments [facility],non-owned Affiliates and Associated Physician Practices is amultiple site organization consisting of ambulatory clinics and hospital sitesin [place], [place], [place] and [place]. This disclosure is being madepursuant to the Care Everywhere program and may not contain all information available regarding this patient. Last updated 18.[facility] Allergies No known active allergies Medications * Be aware that medications may not be up to date on this document. Alwaysverify current medications with the patient. atorvastatin (LIPITOR) 10 MG tablet Take 1 (one) tablet by mouth every 2 days 4 6 Active triamcinolone (NASACORT AQ) 55 MCG/ACT nasal inhaler [place] 1 (one) spray into each nostril once daily Active PARoxetine (PAXIL) 40 MG tablet Take 1 (one) tablet by mouth once daily Active loratadine (CLARITIN) 10 MG tablet Take 1 (one) tablet by mouth once daily 3 7 Active montelukast (Singulair) 10 MG tabletIndications :Allergic rhinitis, unspecified seasonality, unspecified trigger Take 1 (one) tablet by mouth once daily 90 tablet 3 2 Active albuterol HFA (Proventil; Ventolin; Proair) 108 (90 Base) MCG/ACT inhalerIndication s:Chronic obstructive pulmonary disease with acute exacerbation (HCC) INHALE 2 PUFFS INTO LUNGS 4 TIMES DAILY NEEDED 8.5 g 5 2 Active omeprazole (PriLOSEC) 40 MG capsule Take 1 (one) capsule by mouth once daily Active losartan (Cozaar) 50 MG tablet Take 1 (one) tablet by mouth once daily 4 Active Trelegy Ellipta 200-62.5-25 MCG/ACT inhaler TAKE 1 PUFF BY MOUTH EVERY DAY 60 Each 5 5 Active Active Problems Problem Noted Date Diagnosed Date Allergic rhinitis 05/08/2021 Essential hypertension 05/08/2021 Generalized anxiety disorder 05/08/2021 Hyperlipidemia 05/08/2021 Mild intermittent asthma 05/08/2021 Obesity 05/08/2021 Tinea cruris 04/18/2017 COPD, severe 09/21/2016 Encounters Date Type Department Care Team Description 05/13/2025 Telephone [facility] Pulmonology [address] [place] [phone] Jalil Thacker MD [facility] 04/10/2025 Refill [facility] Pulmonology [address] [place] [address] [place] [address] Jalil Thacker MD Refill Request 02/21/2025 Telephone [facility] Pulmonology [address] [place] [phone] Jalil Thacker MD Medication Issue (CPAP) from Last 3 Months Immunizations Immunization Administration Dates Next Due INFLUENZA VACCINE, TRIV. (AF LURIA, FLUZONE TRIVALENT; 6MO+) (IIV3) 06/22/2007 FLU VACCINE QUAD IIV4 SPLIT 0.25 ML IM 6,07/08/2015 INFLUENZA VACCINE 08/18/2017 INFLUENZA VACCINE, ADJUVANTE D, TRIV. (FLUAD TRIVALENT; 65Y+) (AIIV3) 07/23/2024 INFLUENZA VACCINE, CELL CULT URE, QUADR. (FLUCELVAX QUADRIVALENT; 6MO+) (CCIIV4) 06/29/2017 INFLUENZA VACCINE, HIGH-DOSE , QUADR. (FLUZONE HIGH-DOSE QUADRIVALENT; 65Y+), 0.7 ML (HD-IIV4) 06/30/2020,08/07/2019 PNEUMOCOCCAL PPSV23 05/13/2021 Pneumococcal Pcv13 Conj 05/11/2019 Zoster Hzv Vacc Recombinant Inj Im 06/30/2020 Family History Medical History Relation Name Comments Heart Failure Father Cancer Mother Relation Name Status Comments Father Mother Social History Tobacco Use Types Packs/Day Years Used Date Smoking Tobacco: Former Cigarettes 2 20 0 09/19/1964 - 09/19/1984 Smokeless Tobacco: Never Tobacco Cessation:Counseling Given: No Alcohol Use Standard Drinks/Week Comments Not Asked 0 (1 standard drink = 0.6 oz pur e alcohol) PHQ-2 Answer Date Recorded Patient Health Questionnaire-2 Score 0 01/22/2025 Sex and Gender Information Value Date Recorded Sex Assigned at Not on file Legal Sex Male 12:40 PM CDT Gender Identity Not on file Sexual Orientation Not on file Last Filed Vital Signs Vital Sign Reading Time Taken Comments Blood Pressure 130/80 01/22/2025 10:16 AM CDT Pulse 89 01/22/2025 10:16 AM CDT Temperature 36.4 C (97.6 F) 01/22/2025 10:16 AM CDT Respiratory Rate 20 01/22/2025 10:16 AM CDT Oxygen Saturation 98% 01/22/2025 10:16 AM CDT room air Inhaled Oxygen Concentration - - Weight 129.7 kg (286 lb) 01/22/2025 10:16 AM CDT Height 185.4 cm (6' 1) 01/22/2025 10:16 AM CDT Body Mass Index 37.73 01/22/2025 10:16 AM CDT Plan of Treatment Upcoming Encounters Date Type Department Care Team (Late st Contact Info) Description 07/24/2025 10:00 AM DYNAMITE [facility]TRID[facility] CRIMPER Office Visit [facility] - Pulmonology [id number] [place] [address] [address] [place] [address] [place] [phone] [facility] [address] [place] [address] Health Maintenance Due Date Last Done Comments COLOGUARD (AGES 45-75) - COLON CA SCREENING 1954 COLON MONITORING 1954 COLONOSCOPY - COLON CA SCREENING [address] CT COLONOGRAPHY - COLON CA SCREENING 1954 Colorectal Cancer Screening 1954 FIT - COLON CA SCREENING 1954 FLEX SIG - COLON CA SCREENING 1954 MEDICARE AWV 12 MONTHS 1954 HEPATITIS C SCREENING 02/04/1972 DTAP/TDAP/TD VACCINES (1 - Tdap) 1973 Respiratory Syncytial Virus (RSV) Vaccine Pt: or over 60 yrs (1 - Risk 60-74 years 1-dose series) 2014 AAA SCREENING 2019 ZOSTER VACCINE (2 of 2) 08/25/2020 06/30/2020 SCREENING FOR DIABETES 06/15/2022 COVID-19 VACCINE (1 - season) 2024 INFLUENZA VACCINE (#1) 2025 , 06/30/2020, 08/07/2019, Additional history exists PNEUMOCOCCAL VACCINE 50+ Completed 05/13/2021, 04/20 DEPRESSION SCREENING Completed 11/14/2024, 07/23/20 24 HEPATITIS B VACCINE Aged Out No longe r eligible based on patient's age to complete this topic HIB VACCINE Aged Out No longer eligi ble based on patient's age to complete this topic HPV VACCINE Aged Out No longer eligi ble based on patient's age to complete this topic MENINGOCOCCAL (Group B) VACCINE SHARED DECISION-MAKING Aged Out No longer eligible based on patient's age to complete this topic MENINGOCOCCAL GROUPS A/C/Y/W VACCINE Aged Out No longer eligible based on patient's age to complete this topic Insurance [facility] MEDICARE SELF PAY NO INSURANCE Member Subscriber Plan / Payer (Ef fective for All Dates) Name:Kristian James Member ID:Not on file Relation to Subscriber:Not on file Name:KRISTIAN JAMES Subscriber ID:Not on file (Home) Address: [address] [place], [place] [address] Payer ID:Not on file Group ID:Not on file Type:Self Pay Address: [place], [place] [employer] SELF PAY NO INSURANCE Member Subscriber Plan / Payer (Ef fective for All Dates) Name:Kristian James Member ID:Not on file Relation to Subscriber:Not on file Name:KRISTIAN JAMES Subscriber ID:Not on file (Home) Address: [address] [place] [address] Payer ID:Not on file Group ID:Not on file Type:Self Pay Address: [place], [place] [employer] SELF PAY NO INSURANCE Member Subscriber Plan / Payer (Ef fective for All Dates) Name:Kristian James Member ID:Not on file Relation to Subscriber:Not on file Name:JACOBKRISTIAN Subscriber ID:Not on file (Home) Address: [address] [place] [address] Payer ID:Not on file Group ID:Not on file Type:Self Pay Address: [place], [place] [facility] MEDICARE SELF PAY NO INSURANCE Member Subscriber Plan / Payer (Ef fective for All Dates) Name:Jacob Kristian Mcnamara Member ID:Not on file Relation to Subscriber:Not on file Name:KRISTIAN JAMES Subscriber ID:Not on file (Home) Address: [address] [place] [address] Payer ID:Not on file Group ID:Not on file Type:Self Pay Address: [place], [place] [employer] SELF PAY NO INSURANCE Member Subscriber Plan / Payer (Ef fective for All Dates) Name:Kristian James Member ID:Not on file Relation to Subscriber:Not on file Name:JACOBKRISTIAN Subscriber ID:Not on file (Home) Address: [address] [place], [place] [address] Payer ID:Not on file Group ID:Not on file Type:Self Pay Address: [place], [place] [facility] MEDICARE SELF PAY NO INSURANCE Member Subscriber Plan / Payer (Ef fective for All Dates) Name:JacobKristian Member ID:Not on file Relation to Subscriber:Not on file Name:KRISTIAN JAMES Subscriber ID:Not on file (Home) Address: [address] [place], [place] [id number] Payer ID:Not on file Group ID:Not on file Type:Self Pay Address: [place], [place] * Guarantor: KRISTIAN JAMES Account Type Relation to Patient Date of Phone Billing Address Personal/Family Spouse Care Teams Electronic Equipment Repairer Relationship Specialty Start Date End Date Brian Izquierdo MD [address] [place] [phone] PCP - General Family Medicine 05/08/21 [place] [phone] [facility] [address] [place], [place] [phone] Pulmonary Disease 02/13/16
--- OUTSIDE RECORDS SUMMARY | 2025-05-21 11:24 | XMS_ITS | Clinical Summary ---
Author Organization [address] Address [address] [place] [address] Care Team Providers Care Landscape Manager Name Role Phone Daphnie Hiral Ogden PA Unavailable [phone] Cari Terry NP Primary Care Provider [phone] Allergies No known active allergies Medications atorvastatin (LIPITOR) 10 mg tablet Take 1 tablet (10 mg total) by mouth every other day Active azelastine (ASTELIN) 137 mcg (0.1 %) nasal spray Active Trelegy Ellipta 200-62.5-25 mcg inhaler Inhale 1 puff daily 5 Active lisinopriL (PRINIVIL,ZESTRI L) 10 mg tablet Take 1 tablet every day by oral route. Active loratadine (CLARITIN) 10 mg tablet Take 1 tablet (10 mg total) by mouth daily 7 Active losartan (COZAAR) 25 mg tablet Take 1 tablet (25 mg total) by mouth daily Active losartan (COZAAR) 50 mg tablet Take 1 tablet (50 mg total) by mouth daily 4 Active mometasone-formo terol (DULERA 200) 200-5 mcg/actuation inhaler Active montelukast (SINGULAIR) 10 mg tablet Take 1 tablet (10 mg total) by mouth daily 2 Active omeprazole (PriLOSEC) 40 mg capsule Active PARoxetine (PAXIL) 40 mg tablet Take 1 tablet (40 mg total) by mouth daily Active theophylline (ALPA-24) 300 mg 24 hr capsule Take 1 capsule every day by oral route. Active umeclidinium (INCRUSE ELLIPTA) 62.5 mcg/actuation blister with device INHALE 1 PUFF INTO LUNGS EVERY DAYNEED APPOINTMENT Active albuterol HFA (PROVENTIL HFA,VENTOLIN HFA,PROAIR HFA) 90 mcg/actuation inhaler INHALE 2 PUFFS INTO LUNGS 4 TIMES DAILY NEEDEDNEED APPOINTMENT 9 Active albuterol 2.5 mg /3 mL (0.083 %) nebulizer solution Inhale 3 mL 4 times a day by nebulization route as needed for 30 days. Active ipratropium-albu teroL (DUO-NEB) 0.5-2.5 mg/3 mL nebulizer solutionIndicati ons:COPD exacerbation (HCC) Take 3 mL by nebulization every 6 (six) hours as needed for wheezing or shortness of breath 75 mL 5 Active Active Problems Problem Noted Date Diagnosed Date Chronic obstructive pulmonary disease 08/25/2015 Overview (12/23/2016): COPD Immunizations Immunization Administration Dates Next Due Influenza, Trivalent, IM (MDV) 06/22/2007 Medical History Medical History Date Comments Asthma Asthma Depression Depression Arthritis Arthritis Anxiety disorder Anxiety Hypertension Hypertension Chronic obstructive pulmonary disease (HCC) COPD Hx Other Medical PND Family History Medical History Relation Name Comments Melanoma Mother 2 Cancer -melanom a; Cause of : Cancer -melanoma Coronary artery disease Other Fami ly history of Coronary artery disease; Other Other Family history of mother, melanoma; Relation Name Status Comments Mother 1 Mother 2 Other Social History Tobacco Use Types Packs/Day Years Used Date Smoking Tobacco: Former Cigarettes Q uit: 09/19/1989 Alcohol Use Standard Drinks/Week Comments Yes 0 (1 standard drink = 0.6 oz pur e alcohol) Sex and Gender Information Value Date Recorded Sex Assigned at Not on file Legal Sex Male 5:38 PM BUSINESS 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 Gender Identity Not on file Sexual Orientation Not on file Obstetrics History Last Filed Vital Signs Vital Sign Reading Time Taken Comments Blood Pressure 140/76 02/06/2025 12:22 PM CDT Pulse 97 02/06/2025 1:02 PM CDT Post Neb Tx Temperature 36.3 C (97.3 F) 02/06/2025 12:22 PM CDT Respiratory Rate 18 02/06/2025 12:22 PM CDT Oxygen Saturation 98% 02/06/2025 1:02 PM CDT Post Neb Tx Inhaled Oxygen Concentration - - Weight 126.1 kg (278 lb) 02/06/2025 12:22 PM CDT Height 185.4 cm (6' 1) 02/06/2025 12:22 PM CDT Body Mass Index 36.68 02/06/2025 12:22 PM CDT Plan of Treatment Health Maintenance Due Date Last Done Comments Colon Cancer Screening-Colonoscopy 1954 Depression Screening 1954 Fall Risk Assessment 1954 Hepatitis C Screening 1954 Hepatitis B Screening 02/09/1972 Abdominal Aortic Aneurysm (A AA) Screen 2019 Well Visit 65+ 2019 DTaP/Tdap/Td Vaccine (2 - Td or Tdap) 01/18/2024 01/17/2014 Covid-19 Vaccine (4 - 2023-2 5 season) 2024 07/21/2021, 12/09/2020, 11/20/2020 Influenza Vaccine (#1) 2025 4, 07/21/2023, 07/25/2022, Additional history exists Zoster Vaccine Completed 01/21/2021, 06/30/2020 Pneumococcal vaccine 65+ Completed 023, 05/13/2021, 05/11/2019 Insurance [facility] Care Teams Landscape Manager Relationship Specialty Start Date End Date Cari Terry NP [address] [place] [address] PCP - General Nurse Practitioner 02/13/25 Hiral Eller PA [address] [place] [address] [place] [id number] Physician Fitness Attendant Internal Medicine 12/27/17
== END 2025-05-21 10:49 | disposition home or self-care (01) ==
PROVIDERS: PCP Nurse Practitioner Adult Health; Visit Provider Nurse Practitioner Adult Health
DX: R91.8 Other nonspecific abnormal finding of lung field (principal)
CPT/HCPCS: 78815; A9552

== ENCOUNTER 2025-09-03 10:51 | Outpatient (CLI) | payer OTHER, SELFPAY ==
--- OUTSIDE RECORDS SUMMARY | 2025-09-03 12:05 | XMS_ITS | Clinical Summary ---
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 Gender Identity Not on file Sexual Orientation [...] Tdap) 01/18/2024 01/17/2014 Covid-19 Vaccine (4 - 2024-2 6 season) 2025 07/21/2021, 12/09/2020, 11/20/2020 Influenza Vaccine (#1) 2025 4, 07/21/2023, 07/25/2022, Additional history exists Zoster Vaccine Completed 01/21/2021, 06/30/2020 Pneumococcal vaccine 65+ Completed 023, 05/13/2021, 05/11/2019 Insurance [facility] Care Teams Diet Consultant Relationship Specialty Start Date End Date Cari Terry NP [address] [place] [address] PCP - General Nurse Practitioner 02/13/25 Hiral Eller PA [address] [place] [address] Physician Log Grader Internal Medicine 12/27/17
--- OUTSIDE RECORDS SUMMARY | 2025-09-03 12:05 | XMS_ITS | Clinical Summary ---
Author Organization [email or web address] Address [address] [place] [address] Care Team Providers Care Burling And Joining Supervisor Name Role Phone Jalil Thacker MD Unavailable Brian Izquierdo MD Primary Care Provider [phone] Source Comments [email or web address],non-owned Affiliates and Associated Physician Practices is amultiple site organization consisting of ambulatory clinics and hospital sitesin [place], [place], [place] and [place]. This disclosure is being madepursuant to the Care Everywhere program and may not contain all information available regarding this patient. Last updated 18.[email or web address] Allergies No known active allergies Medications * Be aware that medications may not be up to date on this document. Alwaysverify current medications with the patient. atorvastatin (LIPITOR) 10 MG tablet Take 1 (one) tablet by mouth every 2 days 4 6 Active triamcinolone (NASACORT AQ) 55 MCG/ACT nasal inhaler [place] 1 (one) spray into each nostril once daily Active PARoxetine (PAXIL) 40 MG tablet Take 1 (one) tablet by mouth once daily Active loratadine (CLARITIN) 10 MG tablet Take 1 (one) tablet by mouth once daily 3 7 Active montelukast (Singulair) 10 MG tabletIndications :Allergic rhinitis, unspecified seasonality, unspecified trigger Take 1 (one) tablet by mouth once daily 90 tablet 3 2 Active omeprazole (PriLOSEC) 40 MG capsule Take 1 (one) capsule by mouth once daily Active losartan (Cozaar) 50 MG tablet Take 1 (one) tablet by mouth once daily 4 Active Trelegy Ellipta 200-62.5-25 MCG/ACT inhaler TAKE 1 PUFF BY MOUTH EVERY DAY 60 Each 5 5 Active albuterol HFA (Proventil; Ventolin; Proair) 108 (90 Base) MCG/ACT inhalerIndication s:Chronic obstructive pulmonary disease with acute exacerbation (HCC) INHALE 2 PUFFS INTO LUNGS 4 TIMES DAILY NEEDED 18 g 11 5 Active vitamin D3 (Cholecalciferol) 25 MCG (1000 UNITS) tablet Take 1 (one) tablet by mouth once daily Active Cholecalciferol 50 MCG (2000 UT) DAILY 4 Active Active Problems Problem Noted Date Diagnosed Date Allergic rhinitis 05/08/2021 Essential hypertension 05/08/2021 Generalized anxiety disorder 05/08/2021 Hyperlipidemia 05/08/2021 Mild intermittent asthma 05/08/2021 Obesity 05/08/2021 Tinea cruris 04/18/2017 COPD, severe 09/21/2016 Encounters Date Type Department Care Team Description 07/24/2025 10:00 AM PERSONNEL RESEARCH PSYCHOLOGIST Office Visit [facility] - Pulmonology [address] [facility] [address] [place] [address] Jalil Thacker MD COPD with asthma (HCC) - with FEV1 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 post BD (Primary Dx); History of tobacco abuse; Multiple lung nodules on CT; Pulmonary infiltrates; CHRISTINA (obstructive sleep apnea); Allergic rhinitis, unspecified seasonality, unspecified trigger; Essential hypertension; Obesity (BMI 30-39.9) 07/24/2025 9:57 AM PERSONNEL RESEARCH PSYCHOLOGIST - 07/24/2025 11:59 PM PERSONNEL RESEARCH PSYCHOLOGIST Hospital Encounter [facility] - Radiology [address] [place] [address] Jalil Thacker MD Discharge Disposition: Home or Self Care from Last 3 Months Immunizations Immunization Administration [...] Sign Reading Time Taken Comments Blood Pressure 108/70 07/24/2025 10:26 AM PERSONNEL RESEARCH PSYCHOLOGIST Pulse 95 07/24/2025 10:26 AM PERSONNEL RESEARCH PSYCHOLOGIST Temperature 36.8 C (98.2 F) 07/24/2025 10:26 AM PERSONNEL RESEARCH PSYCHOLOGIST Respiratory Rate 20 07/24/2025 10:26 AM PERSONNEL RESEARCH PSYCHOLOGIST Oxygen Saturation 98% 07/24/2025 10:26 AM PERSONNEL RESEARCH PSYCHOLOGIST room air Inhaled Oxygen Concentration - - Weight 123.8 kg (273 lb) 07/24/2025 10:26 AM PERSONNEL RESEARCH PSYCHOLOGIST Height 185.4 cm (6' 1) 07/24/2025 10:26 AM PERSONNEL RESEARCH PSYCHOLOGIST Body Mass Index 36.02 07/24/2025 10:26 AM PERSONNEL RESEARCH PSYCHOLOGIST Plan of Treatment Upcoming Encounters Date Type Department Care Team (Late st Contact Info) Description 12/23/2025 10:30 AM CDT Office Visit [facility] - Pulmonology [address] [place] [address] [place] [address] [place] [address] Health Maintenance Due Date Last [...] or over 60 yrs (1 - Risk 50-74 years 1-dose series) 02/09/2004 AAA SCREENING 2019 ZOSTER VACCINE (2 of 2) 08/25/2020 06/30/2020 SCREENING FOR DIABETES 06/15/2022 COVID-19 VACCINE ( - season) 2025 07/21/2021, 12/09/2020, 11/20/2020 INFLUENZA VACCINE (#1) 2025 , 07/21/2023, 06/30/2020, Additional history exists PNEUMOCOCCAL VACCINE 50+ Completed [...] on patient's age to complete this topic Procedures Procedure Name Priority Date/Time Associated Diagnosis Comments XR CHEST 2VW Routine 07/24/2025 10:07 AM PERSONNEL RESEARCH PSYCHOLOGIST Dyspnea, unspecified type CHRISTINA on CPAP COPD with asthma (HCC) - with FEV1 70% pred post BD History of tobacco abuse from Last 3 Months Results * XR Chest 2Vw (07/24/2025 10:07 AM PERSONNEL RESEARCH PSYCHOLOGIST) Anatomical Region Laterality Modality Chest Computed Radiogr aphy 07/24/2025 11:2 6 AM PERSONNEL RESEARCH PSYCHOLOGIST Narrative 07/24/2025 11:28 AM PERSONNEL RESEARCH PSYCHOLOGIST PA & Lateral Chest INDICATION: R06.00: Dyspnea, unspecified type G47.33: CHRISTINA on CPAP J44.89: COPD with asthma (HCC) Z87.891: History of tobacco abuse COMPARISON: 01/22/2025 FINDINGS: There is mild hyperexpansion with flattening of hemidiaphragms, increased AP chest diameter and prominence of interstitial pattern, consistent with background COPD. There is no focal infiltrate or consolidation. There is no pleural effusion or pneumothorax. A mass is not identified. Heart size is stable. > Interpreting Provider: Dereck Martinez JR, MD on 07/24/2025 11:28 AM Procedure Note Dereck Martinez MD - 07/24/2025 PA & Lateral Chest INDICATION: R06.00: Dyspnea, unspecified type G47.33: CHRISTINA on CPAP J44.89: COPD with asthma (HCC) Z87.891: History of tobacco abuse COMPARISON: 01/22/2025 FINDINGS: There is mild hyperexpansion with flattening of hemidiaphragms,increased AP chest diameter and prominence of interstitial pattern, consistentwith background COPD. There is no focal infiltrate or consolidation. There isno pleural effusion or pneumothorax. A mass is not identified. Heart sizeis stable. > Interpreting Provider: Dereck Martinez JR, MD on 07/24/2025 11:28 AM Jalil Thacker MD DIAGNOSTIC IMAGING ORDERA BLES Final Result from Last 3 Months Insurance [facility] MEDICARE SELF PAY NO INSURANCE Member Subscriber Plan / Payer (Ef fective for All Dates) Name:Kristian James Member ID:Not on file Relation to Subscriber:Not on file Name:KRISTIAN JAMES Subscriber ID:Not on file (Home) Address: [address] [place] [phone] Payer ID:Not on file Group ID:Not on file Type:Self Pay Address: [place], [place] [facility] MEDICARE SELF PAY NO INSURANCE Member Subscriber Plan / Payer (Ef fective for All Dates) Name:Kristian James Member ID:Not on file Relation to Subscriber:Not on file Name:KRISTIAN JAMES Subscriber ID:Not on file (Home) Address: [address] [place], [place] [address] Payer ID:Not on file Group ID:Not on file Type:Self Pay Address: [place], [place] [facility] MEDICARE SELF PAY NO INSURANCE Member Subscriber Plan / Payer (Ef fective for All Dates) Name:Kristian James Member ID:Not on file Relation to Subscriber:Not on file Name:KRISTIAN JAMES Subscriber ID:Not on file (Home) Address: [address] [place] [id number] Payer ID:Not on file Group ID:Not on file Type:Self Pay Address: [place] [facility] MEDICARE SELF PAY NO INSURANCE Member Subscriber Plan / Payer (Ef fective for All Dates) Name:Kristian James Member ID:Not on file Relation to Subscriber:Not on file Name:KRISTIAN JAMES Subscriber ID:Not on file (Home) Address: [address] [place] [phone] Payer ID:Not on file Group ID:Not on file Type:Self Pay Address: [place] SELF PAY NO INSURANCE Member Subscriber Plan / Payer (Ef fective for All Dates) Name:Kristian James Member ID:Not on file Relation to Subscriber:Not on file Name:KRISTIAN JAMES Subscriber ID:Not on file (Home) Address: [address] [place] [address] Payer ID:Not on file Group ID:Not on file Type:Self Pay Address: [place] MEDICARE SELF PAY NO INSURANCE Member Subscriber Plan / Payer (Ef fective for All Dates) Name:Kristian James Member ID:Not on file Relation to Subscriber:Not on file Name:KRISTIAN JAMES Subscriber ID:Not on file (Home) Address: [address] [place], [place] [address] Payer ID:Not on file Group ID:Not on file Type:Self Pay Address: [place], [place] * Guarantor: KRISTIAN JAMES Account Type Relation to Patient Date of Phone Billing Address Personal/Family Spouse Care Teams Burling And Joining Supervisor Relationship Specialty Start Date End Date Brian Izquierdo MD [address] [place] [phone] PCP - General Family Medicine 05/08/21 [place] [address] [facility] [address] [place] [address] Pulmonary Disease 02/13/16
--- OUTSIDE RECORDS SUMMARY | 2025-09-03 12:05 | XMS_ITS | Clinical Summary ---
Author Organization [facility] Address [address] [address] Phone Care Team Providers Care Solar Sales Energy Advisor Name Role Phone Cari Terry Brit HINDS Primary Care Provider [phone] Allergies No known active allergies Medications albuterol [...] inhalation every 4 hours as needed. Active Family History Medical History Relation Name Comments Heart Disease Father Cancer Mother Melanoma Cancer Sister Relation Name Status Comments Father Mother Sister Social History Tobacco Use Types Packs/Day Years Used Date Smoking Tobacco: Former Cigarettes 0 Q uit: 1994 Smokeless Tobacco: Never Tobacco [...] Occult Blood 1999 AAA Screening Ultrasound 2019 Medicare Initial AWV [id number] 01/18/2020 Influenza Immunization (#1) 05/20/202512/2023, 07/21/2023, 07/25/2022, Additional history exists SARS-COV-2 Immunization ( season) 2025 07/21/2021, 12/09/2020, 11/20/2020 DTaP/Tdap/Td Immunization Discontinued 01/17/2014 TdaP Immunization Completed 01/17/2014 Zoster Immunization Completed 01/21/2021, Pneumococcal Immunization (50+ years) Completed 10/25/2022, 05/13/2021, 05/11/2019 Pneumococcal Immunization Combined Discontinued 10/25/2022, 05/13/2021, 05/11/2019 Respiratory Syncytial Virus (RSV) Immunization (Adult) Completed 07/24/2024 Hepatitis B Immunization Aged Out No longer eligible based on patient's age to complete this topic Human Papillomavirus (HPV) Immunization (No Doses Required) Completed Meningococcal Immunization (ACWY) Aged Out No longer eligible based on patient's age to complete this topic Rotavirus Immunization Aged Out No lo nger eligible based on patient's age to complete this topic Medical Devices Implanted Type Area Urology Physician Assistant Device Identifier Shelf Expiration Date Model / Serial / Lot Left Lens Implanted:Qty: 1 on 03/18/2025 by Henny Soto MD PhD at [facility] Left: Eye AUGUST & AUGUST 08/21/2027 DCB0 0 / DCB00 / [id number] Right Lens Implanted:Qty: 1 on 04/15/2025 by Henny Soto MD PhD at [facility] Right: Eye AUGUST & AUGUST 12/05/2027 DCB00 / DCB00 / [id number] Insurance MEDICARE C [employer] Care Teams Solar Sales Energy Advisor Relationship Specialty Start Date End Date Cari Terry APRN [address] [place] [id number] PCP - General Advanced Practice Nurse 04/15/25
--- OUTSIDE RECORDS SUMMARY | 2025-09-03 13:03 | XMS_ITS | Clinical Summary ---
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
--- OUTSIDE RECORDS SUMMARY | 2025-09-03 13:03 | XMS_ITS | Clinical Summary ---
Author Organization [facility] Address [address] [address] Phone Care Team Providers Care Certified Medical Coder Name Role Phone Cari Terry Brit HINDS Primary Care Provider [phone] Allergies No known active allergies Medications albuterol [...] this topic Medical Devices Implanted Type Area Accounting Systems Manager Device Identifier Shelf Expiration Date Model / Serial / Lot Left Lens Implanted:Qty: 1 on 03/18/2025 by Henny Soto MD PhD at [facility] Left: Eye AUGUST & AUGUST 08/21/2027 DCB0 0 / DCB00 / [id number] Right Lens Implanted:Qty: 1 on 04/15/2025 by Henny Soto MD PhD at [facility] Right: Eye AUGUST & AUGUST 12/05/2027 DCB00 / DCB00 / [id number] Insurance MEDICARE C [employer] Care Teams Certified Medical Coder Relationship Specialty Start Date End Date Cari Terry APRN [address] [place] [id number] PCP - General Advanced Practice Nurse 04/15/25
--- OUTSIDE RECORDS SUMMARY | 2025-09-03 13:03 | XMS_ITS | Clinical Summary ---
Author Organization [facility] [address] [facility] [place] [address] Care Team Providers Care Firefighter Type One Name Role Phone Jalil Thacker MD Unavailable Brian Izquierdo MD Primary Care Provider [phone] Source Comments [facility] [address],non-owned Affiliates and Associated Physician Practices is amultiple site organization consisting of ambulatory clinics and hospital sitesin [place] and [place]. This disclosure is being madepursuant to the Care Everywhere program and may not contain all information available regarding this patient. Last updated 18.[facility] [address] Allergies No known active allergies Medications * Be aware that medications may not be up to date on this document. Alwaysverify current medications with the patient. 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); History of tobacco abuse; Multiple lung nodules on CT; Pulmonary infiltrates; CHRISTINA (obstructive sleep apnea); Allergic rhinitis, unspecified seasonality, unspecified trigger; Essential hypertension; Obesity (BMI 30-39.9) 07/24/2025 9:57 AM CLINICAL LABORATORY AIDES TEACHER - 07/24/2025 11:59 PM CLINICAL LABORATORY AIDES TEACHER Hospital Encounter [facility] - Radiology [address] [place] [address] Jalil Thacker MD Discharge Disposition: [...] Comments Blood Pressure 108/70 07/24/2025 10:26 AM CLINICAL LABORATORY AIDES TEACHER Pulse 95 07/24/2025 10:26 AM CLINICAL LABORATORY AIDES TEACHER Temperature 36.8 C (98.2 F) 07/24/2025 10:26 AM CLINICAL LABORATORY AIDES TEACHER Respiratory Rate 20 07/24/2025 10:26 AM CLINICAL LABORATORY AIDES TEACHER Oxygen Saturation 98% 07/24/2025 10:26 AM CLINICAL LABORATORY AIDES TEACHER room air Inhaled Oxygen Concentration - - Weight 123.8 kg (273 lb) 07/24/2025 10:26 AM CLINICAL LABORATORY AIDES TEACHER Height 185.4 cm (6' 1) 07/24/2025 10:26 AM CLINICAL LABORATORY AIDES TEACHER Body Mass Index 36.02 07/24/2025 10:26 AM CLINICAL LABORATORY AIDES TEACHER Plan of Treatment Upcoming Encounters Date Type Department Care Team (Late st Contact Info) Description 12/23/2025 10:30 AM CDT Office Visit [facility] - Pulmonology [id number] [place] [address] [place] [id number] [facility] [address] [address] [place] [address] Health Maintenance Due Date Last [...] XR CHEST 2VW Routine 07/24/2025 10:07 AM CLINICAL LABORATORY AIDES TEACHER Dyspnea, unspecified type CHRISTINA on CPAP 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 MEDICARE SELF PAY NO INSURANCE Member Subscriber Plan / Payer (Ef fective for All Dates) Name:Kristian James Member ID:Not on file Relation to Subscriber:Not on file Name:KRISTIAN JAMES Subscriber ID:Not on file (Home) Address: [address] [place] [phone] Payer ID:Not on file Group ID:Not on file Type:Self Pay Address: [place], [place] [facility] MEDICARE SELF PAY NO INSURANCE Member Subscriber Plan / Payer (Ef fective for All Dates) Name:Kristian James Member ID:Not on file Relation to Subscriber:Not on file Name:KRISTIAN JAMES Subscriber ID:Not on file (Home) Address: [address] [place], [place] [id number] Payer ID:Not on file Group ID:Not on file Type:Self Pay Address: [place] [facility] MEDICARE SELF PAY NO INSURANCE Member Subscriber Plan / Payer (Ef fective for All Dates) Name:Kristian James Member ID:Not on file Relation to Subscriber:Not on file Name:KRISTIAN JAMES Subscriber ID:Not on file (Home) Address: [address] [place] [phone] Payer ID:Not on file Group ID:Not on file Type:Self Pay Address: [place] [facility] MEDICARE SELF PAY NO INSURANCE Member Subscriber Plan / Payer (Ef fective for All Dates) Name:Kristian James Member ID:Not on file Relation to Subscriber:Not on file Name:KRISTIAN JAMES Subscriber ID:Not on file (Home) Address: [address] [place] [phone] Payer ID:Not on file Group ID:Not on file Type:Self Pay Address: [place] SELF PAY NO INSURANCE Member Subscriber Plan / Payer (Ef fective for All Dates) Name:Kristian James Member ID:Not on file Relation to Subscriber:Not on file Name:KRISTIAN JAMES Subscriber ID:Not on file (Home) Address: [address] [place] [address] Payer ID:Not on file Group ID:Not on file Type:Self Pay Address: [place] MEDICARE SELF PAY NO INSURANCE Member Subscriber Plan / Payer (Ef fective for All Dates) Name:Kristian James Member ID:Not on file Relation to Subscriber:Not on file Name:KRISTIAN JAMES Subscriber ID:Not on file (Home) Address: [address] [place], [place] [id number] Payer ID:Not on file Group ID:Not on file Type:Self Pay Address: [place], [place] * Guarantor: KRISTIAN JAMES Account Type Relation to Patient Date of Phone Billing Address Personal/Family Spouse Care Teams Firefighter Type One Relationship Specialty Start Date End Date Brian Izquierdo MD [address] [place] [phone] PCP - General Family Medicine 05/08/21 [place] [address] [facility] [address] [place] [phone] Pulmonary Disease 02/13/16
[2025-09-03 19:29] LABS: Alanine Aminotransferase 24 U/L (6-50); Albumin Level 4.1 g/dL (3.5-5.1); Alkaline Phosphatase 81 U/L (38-126); Anion Gap 5 mmol/L (4-12); Aspartate Amino Transferase 46 U/L (17-59); Bilirubin,Total 0.6 mg/dL (0.2-1.3); Blood Urea Nitrogen 12 mg/dL (9-20); Calcium 8.9 mg/dL (8.4-10.2); Carbon Dioxide 28 mmol/L (22-30); Chloride 100 mmol/L (98-107); Cholesterol 178 mg/dL (0-200); Estimated Glomerular Filt Rate > 60; Glucose 99 mg/dL (65-110); HDL Direct 35 mg/dL; Potassium 4.4 mmol/L (3.4-5.0); Sodium 133 mmol/L (137-145); Total Protein 8.1 g/dL (6.3-8.2); Triglycerides 119 mg/dL (<150)
== END 2025-09-03 10:52 | disposition home or self-care (01) ==
PROVIDERS: PCP Nurse Practitioner Adult Health; Visit Provider Nurse Practitioner Adult Health
DX: I10 Essential (primary) hypertension (principal); R79.89 Other specified abnormal findings of blood chemistry; Z79.899 Other long term (current) drug therapy
CPT/HCPCS: 36415; 80053; 80061; 82306